=== PATIENT | female | born 1935 | race Caucasian/White ===

== ENCOUNTER 2019-01-05 12:34 | Emergency (ER) | payer MEDICARE, BC ==
[~2019-01-05] VITALS: Ht 162.6 cm; Wt 68.5 kg
--- NOTE | 2019-01-05 12:34 | NUR ---
DIANE FROM THE [facility] C/O GEN WEAKNESS STARTED 2 HRS AGO., TO ER BED 11, HOOKED TO MONITOR, CHANGED TO GOWN, PROVIDED W WARM BLANKET, AWAITING MD IVY.
--- NOTE | 2019-01-05 12:48 | NUR ---
DR GRACE AT BEDSIDE
[2019-01-05] MEDS ORDERED: IV NS 0.9% 1,000 ML BAG IV ONE (13:00)
[2019-01-05 13:10] LABS: BASOPHILS # (AUTO) 0.1 /CMM (0.0-0.2); BASOPHILS % (AUTO) 0.9 % (0.0-2.0); EOSINOPHILS % (AUTO) 0.5 % (0.0-6.0); HEMATOCRIT 49 % (33-45); HEMOGLOBIN 16.4 g/dL (11.5-14.8); LYMPHOCYTES # (AUTO) 1.4 /CMM (0.8-4.8); LYMPHOCYTES % (AUTO) 17.9 % (20.0-44.0); MEAN CORPUSCULAR HGB CONC 34 g/dl (31.0-36.0); MEAN CORPUSCULAR VOLUME 90 fL (82-100); MONOCYTES # (AUTO) 0.6 /CMM (0.1-1.30); MONOCYTES % (AUTO) 7.9 % (2.0-12.0); NEUTROPHILS # (AUTO) 5.7 /CMM (1.8-8.9); NEUTROPHILS % (AUTO) 72.8 % (43.0-81.0); PLATELET COUNT (AUTO) 273 /CMM (150-450); RED BLOOD CELL COUNT(AUTO) 5.37 MIL/uL (4.0-5.2); WHITE BLOOD COUNT (AUTO) 7.9 K/uL (4.3-11.0)
[2019-01-05 13:19] LABS: CALCIUM, SERUM 9.1 mg/dL (8.5-10.1); CARBON DIOXIDE 25 mmol/L (21-32); CHLORIDE 97 mmol/L (98-107); CREATININE 0.9 mg/dL (0.6-1.3); GLUCOSE 107 mg/dL (74-106); POTASSIUM 3.6 mmol/L (3.5-5.1); SODIUM SERUM 133 mmol/L (136-145); UREA NITROGEN, BLOOD 11 mg/dL (7-18)
[2019-01-05 13:29] LABS: ALANINE AMINOTRANSFERASE 20 U/L (12-78); ALBUMIN 3.9 g/dL (3.4-5.0); ALKALINE PHOSPHATASE 85 U/L (46-116); ASPARTATE AMINOTRANSFERASE 18 U/L (15-37); BILIRUBIN,DIRECT 0.2 mg/dL (0.0-0.2); BILIRUBIN,TOTAL 0.7 mg/dL (0.2-1.0); LIPASE 189 U/L (73-393); TOTAL PROTEIN, SERUM 7.7 g/dL (6.4-8.2)
--- NOTE | 2019-01-05 13:54 | NUR ---
RECEIVED VERBAL ORDER FROM DR GRACE TO GIVE THE PATIENT ADDITIONAL 5OOML OF NORMAL SALINE AFTER THE 1L OF NS. CARRIED OUT.
[2019-01-05 14:09] LABS: APPEARANCE,URINE Clear (CLEAR); BILIRUBIN,URINE Negative (NEGATIVE); BLOOD, URINE Negative Ery/uL (NEGATIVE); COLOR,URINE Yellow (YELLOW); KETONES,URINE 15 (NEGATIVE); LEUKOCYTE ESTERASE ,URINE Negative (NEGATIVE); NITRITE, URINE Negative (NEGATIVE); PH,URINE 7.5 (5.0-8.0); PROTEIN,URINE Negative (NEGATIVE); UGLUCOSE Negative (NEGATIVE); UROBILINOGEN,URINE 0.2 EU/dL (0.2)
--- NOTE | 2019-01-05 14:20 | NUR ---
IV 0.9% NS 500ML, IVPB RAC 20G END TIME: 1450
[2019-01-05 14:49] LABS: BACTERIA,URINE Rare /HPF (None Seen); SQUAMOUS EPITHELIAL CELL,UR Rare /HPF (None Seen)
[2019-01-05] MEDS ORDERED: ONDANSETRON HCL/PF 4 MG/2 ML VIAL ONE (15:00)
--- NOTE | 2019-01-05 15:28 | NUR ---
IV removed. Catheter intact and site benign. Pressure and 4x4 applied to site. No bleeding noted. Patient discharged to home with son in stable condition. Written and verbal after care instructions given. Patient verbalizes understanding of instruction.
[2019-01-05 15:30] VITALS: BP 142/87
[2019-01-05] MEDS ORDERED: ONDANSETRON HCL/PF - ER 4 MG/2 ML VIAL IV ONE (15:30)
[2019-01-05] MEDS ORDERED: IV NS 0.9% 500 ML BAG IV ONE (15:30)
== END 2019-01-05 15:30 | disposition home or self-care (01) ==
LOC: ER 12:36
DX: R53.1 Weakness (principal); I10 Essential (primary) hypertension; R00.0 Tachycardia, unspecified; E03.9 Hypothyroidism, unspecified; I45.10 Unspecified right bundle-branch block; Z88.4 Allergy status to anesthetic agent
CPT/HCPCS: 36415; 71045; 80048; 80076; 81001; 83690; 84484; 85025; 93005; 96374; 99284; J2405; J7030; J7040; 81000-TC

== ENCOUNTER 2022-03-19 04:45 | Inpatient (IN) | payer MEDICARE, BC ==
[~2022-03-19] VITALS: Ht 165.1 cm; Wt 62.6 kg
--- NOTE | 2022-03-19 04:50 | NUR ---
[id number] FROM [facility] C/O SLIPPING IN KITCHEN AND SPRAINED L ANKLE. PT A/OX3. TOLERATING R/A WELL WITH NO RESP DISTRESS. SAFETY MEASURES IN PLACE
--- NOTE | 2022-03-19 04:52 | NUR ---
CALLED [id number]
--- NOTE | 2022-03-19 05:35 | NUR ---
pt taken to ct
--- NOTE | 2022-03-19 05:42 | NUR ---
PTY RETURNED TO ER BED [address]
--- NOTE | 2022-03-19 05:54 | NUR ---
PLATE CONDITIONER AT PT'S BEDSIDE
--- NOTE | 2022-03-19 05:54 | NUR ---
IV ESTBLISHED RAC #20G; AWAITING LAB TO DROP OF SUPPLIES FOR COVID SAMPLE
--- NOTE | 2022-03-19 06:09 | NUR ---
CALLED LAB FOR COVID SWABS
--- NOTE | 2022-03-19 06:12 | NUR ---
PT ATTEMPTED BEDPAN AND STATED "I CANT PEE LIKE THIS" OFFERED PT IN AND OUT CATHETER AND PT REFUSES. STATES "I DONT HAVE A URINE INFECTION I DONT NEED TO GIVE URINE". EDUCATED PATIENT ON IMPORTANCE OF URINE TEST AND PT CONTINUES TO REFUSE. MADE AWARE.
[2022-03-19 07:08] LABS: CALCIUM, SERUM 9.1 mg/dL (8.5-10.1); POTASSIUM 3.6 mmol/L (3.5-5.1)
[2022-03-19 07:16] LABS: ALBUMIN 3.5 g/dL (3.4-5.0); BILIRUBIN,DIRECT 0.2 mg/dL (0.0-0.2); BILIRUBIN,TOTAL 0.4 mg/dL (0.2-1.0); TOTAL PROTEIN, SERUM 7.4 g/dL (6.4-8.2)
--- NOTE | 2022-03-19 07:20 | NUR ---
RECEIVED PT FROM [facility] RN PT AWAKE AND ALERT RESOIRATION SPONT AND EASY
--- NOTE | 2022-03-19 07:35 | NUR ---
GOT BED 312-2
[2022-03-19 07:39] LABS: BASOPHILS % (AUTO) 0.3 % (0.0-2.0); EOSINOPHILS % (AUTO) 0.3 % (0.0-6.0); HEMATOCRIT 44 % (33-45); HEMOGLOBIN 14.9 g/dL (11.5-14.8); LYMPHOCYTES # (AUTO) 1.1 K/uL (0.8-4.8); LYMPHOCYTES % (AUTO) 12.8 % (20.0-44.0); MEAN CORPUSCULAR HGB CONC 34 g/dl (31.0-36.0); MEAN CORPUSCULAR VOLUME 90 fL (82-100); MONOCYTES # (AUTO) 0.9 K/uL (0.1-1.30); MONOCYTES % (AUTO) 10.2 % (2.0-12.0); NEUTROPHILS # (AUTO) 6.6 K/uL (1.8-8.9); NEUTROPHILS % (AUTO) 76.4 % (43.0-81.0); PLATELET COUNT (AUTO) 367 K/uL (150-450); RED BLOOD CELL COUNT(AUTO) 4.89 MIL/uL (4.0-5.2); WHITE BLOOD COUNT (AUTO) 8.6 K/uL (4.3-11.0)
--- NOTE | 2022-03-19 08:30 | NUR ---
COVID SWAB DONE AND SENT TO LAB
--- NOTE | 2022-03-19 09:32 | NUR ---
MOVE SHEET SUBMITTED.
--- NOTE | 2022-03-19 10:30 | NUR ---
VITAL SIGNS WITHIN NORMAL LIMITS.
--- NOTE | 2022-03-19 10:55 | NUR ---
UA SENT TO LAB
--- NOTE | 2022-03-19 11:21 | NUR ---
HAND OFF TO IVAN. Parker RN TO ROOM 312-2 VS STABLE
[2022-03-19 11:28] VITALS: BP 129/89
--- NOTE | 2022-03-19 11:45 | NUR ---
MS RN ADMITTING NOTES ADMITTED THI 86 YO FEMALE TO UNIT AT 1128 VIA GURNEY WITH DX OF LEFT ANKLE FRACTURE. PT IS AOX4 AND ABLE TO MAKE NEEDS KNOWN. ORIENTED TO ROOM AND STAFF. VS TAKEN, STABLE AND RECORDED. PT ON ROOM AIR TOLERATING WELL, WITH NO ACUTE RESPIRATORY DISTRESS NOTED. IV ACCESS ON R AC G#20, SALINE LOCKED. PATENT, FLUSHING WELL WITH SALINE. LUNGS CLEAR ON AUSCULTATION BILATERALLY, ABDOMEN, SOFT, NON-TENDER AND NON-DISTENDED WITH + BOWEL SOUNDS ON 4 QUADRANTS, NO SKIN ISSUES NOTED ON BILATERAL EXTREMITIES AND BUTTOCKS. PATIENT REFUSED TO OPEN BOTH ANKLE (L ANKLE WITH BOOTS). SAFETY MEASURE IMPLEMENTED: BED PLACED IN LOWEST POSITION WITH SR UP X2, TRAY TABLE AND CALL LIGHT WITHIN EASY REACH OF PT. WILL CONTINUE TO MONITOR DURING MY SHIFT.
[2022-03-19 11:48] LABS: BILIRUBIN,URINE NEGATIVE (NEGATIVE); COLOR,URINE YELLOW (YELLOW); LEUKOCYTE ESTERASE ,URINE TRACE (NEGATIVE); NITRITE, URINE NEGATIVE (NEGATIVE); PROTEIN,URINE NEGATIVE (NEGATIVE); UGLUCOSE NEGATIVE (NEGATIVE); UROBILINOGEN,URINE 0.2 EU/dL (0.2)
[2022-03-19] MEDS ORDERED: LEVO112T2 PO (12:05)
[2022-03-19 12:24] LABS: BACTERIA,URINE Few /HPF (None Seen); RBC,URINE 0-2 /HPF (0-2); SQUAMOUS EPITHELIAL CELL,UR Few /HPF (None Seen)
[2022-03-19] MEDS ORDERED: MORPHINE SULFATE INJ 2 MG/ML DISP.SYRIN IV PRN (15:00)
[2022-03-19 16:00] VITALS: BP_SYST 129; BP_SYST 135; BP_DIAS 89
--- NOTE | 2022-03-19 17:00 | NUR ---
RN NOTES CAM BOOTS IN PLACE ON LEFT ANKLE AND ADMINISTERED ICE PACKS ON BOTH ANKLE. PURE WICK ADDED
[2022-03-19] MEDS ORDERED: MAG HYDROX/AL HYDROX/SIMETH 30 ML UDC PO PRN (18:00)
[2022-03-19] MEDS ORDERED: Z GUARD REMEDY 4 OZ OINT TP PRN (18:00)
[2022-03-19] MEDS ORDERED: MAGNESIUM HYDROXIDE 30 ML UDC PO PRN (18:00)
[2022-03-19] MEDS ORDERED: ACETAMINOPHEN 325 MG TABLET PO PRN (18:00)
[2022-03-19] MEDS ORDERED: ONDANSETRON HCL/PF 4 MG/2 ML VIAL IVP PRN (18:00)
--- NOTE | 2022-03-19 19:19 | NUR ---
MS RN CLOSING NOTES PATIENT LYING IN BED, RESTING, EASILY AWAKEN, AOX2, ON ROOM AIR, NO SOB NOTED, NOT IN ANY APPARENT DISTRESS NOTED. WITH IV ACCESS ON RAC G#20 SL, PATENT, INFUSING WELL. PATIENT LEFT ANKLE FRACTURE IS PROTECTED BY CAM BOOT WITH ICE PACKING ON BOTH ANKLE. PATIENT DENIES PAIN AT THIS TIME. ALL NEEDS MET, ALL DUE MEDS GIVEN. SAFETY MEASURES IN PLACE: BED LOWEST POSITION, LOCKED, SIDE RAILS UP X2, CALL LIGHT AND TRAY TABLE WITHIN REACH. ENDORSED TO THE MEDICAL REVIEW SPECIALIST NURSE.
[2022-03-19 20:00] VITALS: BP 120/69
--- NOTE | 2022-03-19 20:15 | NUR ---
MS RN OPENING NOTE RECEIVED PT AWAKE IN BED. A/O X4 AND ABLE TO MAKE NEEDS KNOWN. PT STABLE ON ROOM AIR. NO SOB OR S/S OF RESPIRATORY DISTRESS. BREATHING EVEN AND UNLABORED. IV ACCESS RAC 20G, INTACT AND PATENT. SAFETY PRECAUTIONS IN PLACE. BED IN LOWEST LOCKED POSITION, HOB ELEVATED, SIDE RAILS UP X3, AND CALL LIGHT AND TABLE WITHIN REACH. ALL NEEDS MET AT THIS TIME.
--- NOTE | 2022-03-19 22:50 | NUR ---
RN NOTE PT REQUESTED SLEEPING PILL. INFORMED DIRECTOR EHS LIZETH WITH NEW ORDER FOR RESTORIL 15 MG PO HS PRN FOR INSOMNIA. WENT TO INFORM PATIENT BUT PATIENT IS CURRENTLY ASLEEP. WILL INFORM PATIENT OF NEW ORDER WHEN AWAKE. ALL NEEDS MET AT THIS TIME.
[2022-03-19] MEDS ORDERED: TEMAZEPAM 15 MG CAPSULE PO PRN (23:00)
--- NOTE | 2022-03-20 06:45 | NUR ---
MS RN CLOSING NOTE PT RESTING IN BED, VERBALLY RESPONSIVE. A/O X4 AND ABLE TO MAKE NEEDS KNOWN. PT STABLE ON ROOM AIR. NO SOB OR S/S OF RESPIRATORY DISTRESS. BREATHING EVEN AND UNLABORED. IV ACCESS RAC 20G, INTACT AND PATENT. ALL DUE MEDS GIVEN ORDERED. SAFETY PRECAUTIONS IN PLACE AT ALL TIMES. BED IN LOWEST LOCKED POSITION, HOB ELEVATED, SIDE RAILS UP X3, AND CALL LIGHT AND TABLE WITHIN REACH. ALL NEEDS MET AT THIS TIME AND WILL ENDORSE TO ONCOMING NURSE FOR NGOC.
[2022-03-20 07:22] LABS: BASOPHILS % (AUTO) 0.3 % (0.0-2.0); EOSINOPHILS % (AUTO) 0.1 % (0.0-6.0); HEMATOCRIT 41 % (33-45); HEMOGLOBIN 13.9 g/dL (11.5-14.8); LYMPHOCYTES # (AUTO) 1.7 K/uL (0.8-4.8); LYMPHOCYTES % (AUTO) 19.1 % (20.0-44.0); MEAN CORPUSCULAR HGB CONC 34 g/dl (31.0-36.0); MEAN CORPUSCULAR VOLUME 90 fL (82-100); MONOCYTES # (AUTO) 1.1 K/uL (0.1-1.30); MONOCYTES % (AUTO) 12.8 % (2.0-12.0); NEUTROPHILS # (AUTO) 5.9 K/uL (1.8-8.9); NEUTROPHILS % (AUTO) 67.7 % (43.0-81.0); PLATELET COUNT (AUTO) 306 K/uL (150-450); RED BLOOD CELL COUNT(AUTO) 4.62 MIL/uL (4.0-5.2); WHITE BLOOD COUNT (AUTO) 8.8 K/uL (4.3-11.0)
[2022-03-20] MEDS: LEVOTHYROXINE SODIUM 112 MCG TABLET PO SCH (07:44)
--- NOTE | 2022-03-20 07:50 | NUR ---
MS RN OPENING NOTES; RECEIVED PT RESTING IN BED, VERBALLY RESPONSIVE. A/O X4 AND ABLE TO MAKE NEEDS KNOWN. PT STABLE ON ROOM AIR. NO SOB OR S/S OF RESPIRATORY DISTRESS. BREATHING EVEN AND UNLABORED. IV ACCESS RAC 20G, INTACT AND PATENT. PT INSISTS ON TAKING SYNTHROID BEFORE BREAKFAST, WILL MEDICATE PER ORDER. SAFETY PRECAUTIONS IN PLACE AT ALL TIMES. BED IN LOWEST LOCKED POSITION, HOB ELEVATED, SIDE RAILS UP X3, CALL LIGHT AND TABLE WITHIN REACH. WILL CONT WITH PLAN OF CARE DURING SHIFT.
[2022-03-20 08:00] VITALS: BP 133/86
[2022-03-20] MEDS ORDERED: LEVOTHYROXINE SODIUM 112 MCG TABLET PO SCH (09:00)
[2022-03-20 09:02] LABS: CALCIUM, SERUM 8.4 mg/dL (8.5-10.1); CREATININE 0.9 mg/dL (0.6-1.3); PHOSPHORUS 3.2 mg/dL (2.5-4.9); POTASSIUM 3.5 mmol/L (3.5-5.1)
[2022-03-20 11:48] LABS: THYROID STIMULATING HORMONE 1.722 uIU/mL (0.358-3.74)
--- NOTE | 2022-03-20 19:49 | NUR ---
MS RN CLOSING NOTES: PT RESTING IN BED, VERBALLY RESPONSIVE. A/O X4 AND ABLE TO MAKE NEEDS KNOWN. PT STABLE ON ROOM AIR. NO SOB OR S/S OF RESPIRATORY DISTRESS. BREATHING EVEN AND UNLABORED. IV ACCESS RAC 20G, INTACT AND PATENT. PURWICK DRAINED 900CC CLEAR YELLOW URINE DURING SHIFT. SAFETY PRECAUTIONS IN PLACE AT ALL TIMES. BED IN LOWEST LOCKED POSITION, HOB ELEVATED, SIDE RAILS UP X3, CALL LIGHT AND TABLE WITHIN REACH, ENDORSED TO PM SHIFT.
--- NOTE | 2022-03-20 20:12 | NUR ---
RN NOTE PT REQUESTED SLEEPING PILL. ADMINISTERED RESTORIL 15 MG FOR SLEEP ORDERED. PROVIDED BED BATH, CHANGED LINEN AND PURWICK. MADE COMFORTABLE IN BED. ALL NEEDS MET AT THIS TIME.
[2022-03-20 20:30] VITALS: BP 109/67
--- NOTE | 2022-03-21 06:56 | NUR ---
MS RN CLOSING NOTE PT AWAKE IN BED. A/O X4 AND ABLE TO MAKE NEEDS KNOWN. PT STABLE ON ROOM AIR. NO SOB OR S/S OF RESPIRATORY DISTRESS. BREATHING EVEN AND UNLABORED. IV ACCESS RAC 20G, INTACT AND PATENT. ALL DUE MEDS GIVEN ORDERED. SAFETY PRECAUTIONS IN PLACE AT ALL TIMES. BED IN LOWEST LOCKED POSITION, HOB ELEVATED, SIDE RAILS UP X3, AND CALL LIGHT AND TABLE WITHIN REACH. ALL NEEDS MET AT THIS TIME AND WILL ENDORSE TO ONCOMING NURSE FOR NGOC.
--- NOTE | 2022-03-21 07:23 | NUR ---
RN OPENING NOTE RECEIVED PATIENT IN BED, AWAKE, A/O X4, VERBALLY RESPONSIVE. NO SIGNS OF ACUTE DISTRESS NOTED. STABLE ON ROOM AIR. NO SOB NOTED, BREATHING EVEN AND UNLABORED. DENIES ANY PAIN AT THIS TIME. NOTED WITH IV ACCESS ON RIGHT AC #20G, INTACT AND PATENT, SALINE LOCKED. WITH PUREWICK CATHETER IN PLACE TO WALL SUCTION. SAFETY MEASURE IN PLACE. BED IN LOWEST AND LOCKED POSITION, SIDE RAILS UP X2, CALL LIGHT AND TABLE PLACED WITHIN EASY REACH. WILL CONTINUE TO MONITOR PATIENT.
[2022-03-21] MEDS: LEVOTHYROXINE SODIUM 112 MCG TABLET PO SCH (07:47)
[2022-03-21 08:00] VITALS: BP 105/66
[2022-03-21] MEDS ORDERED: HYDR-4303 PO (10:45)
[2022-03-21] MEDS ORDERED: HYDROCODONE/APAP 5/325MG TABLET PO PRN (11:00)
[2022-03-21 16:00] VITALS: BP 108/70
--- NOTE | 2022-03-21 18:36 | NUR ---
RN CLOSING NOTE PATIENT IN BED, AWAKE, A/O X4, VERBALLY RESPONSIVE. WATCHING MOVIE ON HER IPAD. NO SIGNS OF ACUTE DISTRESS NOTED. REMAINS STABLE ON ROOM AIR. NO SOB NOTED, BREATHING EVEN AND UNLABORED. IV ACCESS ON RIGHT AC #20G, INTACT AND PATENT, SALINE LOCKED. WITH PUREWICK CATHETER IN PLACE TO WALL SUCTION. DUE MEDS GIVEN, TOLERATED WELL. LEFT CAM BOOT IN PLACE. PATIENT FOR DISCHARGE TOMORROW MORNING, PATIENT MADE AWARE. SAFETY MEASURE MAINTAINED. BED IN LOWEST AND LOCKED POSITION, SIDE RAILS UP X2, CALL LIGHT AND TABLE PLACED WITHIN EASY REACH. WILL ENDORSE TO NEXT SHIFT FOR CONTINUITY OF CARE.
--- NOTE | 2022-03-21 19:30 | NUR ---
MS RN NOTES RECEIVED ON BED ON SEMI FOWLERS POSITION,A/O X4,NO SOB,SALINE LOCK RIGHT AC INTACT AND PATENT.CAM BOOT IN USED ON LEFT LEG,NON WEIGHT BEARING ORDERED.FALL RISK,BED ON LOWEST POSITION AND LOCKED,CALL LIGHT IN REACH,NEEDS ANTICIPATED.
--- NOTE | 2022-03-21 19:50 | NUR ---
MS RN NOTES PAIN MANAGEMENT C/O PAIN ON LEFT FOOT,5/10 ON PAIN SCALE,NORCO 5/325MG,1 TAB PO GIVEN ORDERED.VITAL SIGNS STABLE.
[2022-03-21 20:00] VITALS: BP_SYST 116; BP_SYST 127; BP_DIAS 58; BP_DIAS 69
--- NOTE | 2022-03-21 21:10 | NUR ---
MS RN OPENING NOTE RECEIVED PATIENT IN BED, ASLEEP BUT EASY TO AROUSE AND RESPONSIVE. ABLE TO MAKE NEEDS KNOWN. AFEBRILE AND NOT IN ANY FORM OF ACUTE DISTRESS. BREATHING EVEN AND NON LABORED. NO C/O PAIN OR DISCOMFORT AT THIS TIME. WITH IV ACCESS ON R AC 20G- SL. SAFETY MEASURES IN PLACE. KEPT BED IN LOCKED AND IN LOW POSITION TO REDUCE INJURY. SIDE RAILS UP X2. ADVISED TO USE THE CALL LIGHT WHEN IN NEED OF ASSISTANCE.
--- NOTE | 2022-03-22 06:30 | NUR ---
MS RN CLOSING NOTE PATIENT IN BED, ASLEEP BUT EASY TO AROUSE AND RESPONSIVE. ABLE TO MAKE NEEDS KNOWN. AFEBRILE AND NOT IN ANY FORM OF ACUTE DISTRESS. BREATHING EVEN AND NON LABORED. NO C/O PAIN OR DISCOMFORT THROUGHOUT THE SHIFT. WITH IV ACCESS ON R AC 20G- SL. SAFETY MEASURES IN PLACE. KEPT BED IN LOCKED AND IN LOW POSITION TO REDUCE INJURY. SIDE RAILS UP X2. ADVISED TO USE THE CALL LIGHT WHEN IN NEED OF ASSISTANCE. CONSTANT VISUAL CHECK DONE TO ENSURE SAFETY. ADVISED TO TURN AND REPOSITION EVERY 2 HOURS AND TOLERATED. ALL NURSING NEEDS ATTENDED. PATIENT FOR POSSIBLE DISCHARGE TO [facility]. ENDORSED TO INCOMING SHIFT.
[2022-03-22] MEDS: LEVOTHYROXINE SODIUM 112 MCG TABLET PO SCH (07:41)
--- NOTE | 2022-03-22 07:43 | NUR ---
MS RN OPENING NOTE RECEIVED PATIENT IN BED AWAKE, ALERT AND VERBALLY RESPONSIVE. ABLE TO MAKE NEEDS KNOWN. AFEBRILE, BREATHING EVEN AND NON LABORED. NO C/O PAIN OR DISCOMFORT AT THIS TIME. WITH IV ACCESS ON R AC 20G- SL, NOTED INTACT. SAFETY MEASURES IN PLACE. KEPT BED IN LOCKED AND IN LOW POSITION. SIDE RAILS UP X2. ADVISED TO USE THE CALL LIGHT WHEN IN NEED OF ASSISTANCE. WILL CONTINUE PLAN OF CARE.
[2022-03-22 08:31] VITALS: BP 117/68
--- NOTE | 2022-03-22 09:15 | NUR ---
RN NOTES CALLED [facility], SPOKE TO CARLOS DAVE AND GAVE REPORT, CONFIRMED UNDERSTANDING. DISCHARGE SUMMARY INSTRUCTIONS GO OVER WITH THE PATIENT, CONFIRMED UNDERSTANDING, SIGNED DISCHARGE PAPER WORKS, PERSONAL BELONGINGS SIGNED. AWAITING FOR AMBULANCE.
--- NOTE | 2022-03-22 10:12 | NUR ---
FINANCIAL SERVICES EDUCATION CONSULTANT NOTES GIVE REPORT TO 2 EMT'S, PATIENT LEFT THE HOSPITAL VIA GURNEY ACCOMPANIED BY 2 EMT'S STABLE, RELEASED ALL PERSONAL BELONGINGS AND DISCHARGE PAPER WORKS GIVE TO THE PATIENT.
== END 2022-03-22 16:25 | DRG 563 ==
LOC: ER 04:52 → MED 09:16
PROVIDERS: ADMIT Internal Medicine; ATTEND Internal Medicine
DX: S82.65XA Nondisplaced fracture of lateral malleolus of left fibula, initial encounter for closed fracture (principal); I47.1 Supraventricular tachycardia; N39.0 Urinary tract infection, site not specified; E87.1 Hypo-osmolality and hyponatremia; Z20.822 Contact with and (suspected) exposure to COVID-19; W19.XXXA Unspecified fall, initial encounter; Y92.89 Other specified places as the place of occurrence of the external cause; I10 Essential (primary) hypertension; E03.9 Hypothyroidism, unspecified; Z88.8 Allergy status to other drugs, medicaments and biological substances; Z79.890 Hormone replacement therapy; S93.401A Sprain of unspecified ligament of right ankle, initial encounter; Z86.79 Personal history of other diseases of the circulatory system; Z91.81 History of falling; Z85.820 Personal history of malignant melanoma of skin; S82.832A Other fracture of upper and lower end of left fibula, initial encounter for closed fracture
CPT/HCPCS: 36415; 70450-TC; 71045-TC; 73590-TC; 73600-TC; 80048-TC; 80076-TC; 81001; 83735-TC; 84100-TC; 84439-TC; 84443-TC; 84484-TC; 85025-TC; 87081-TC; 87086-TC; 93307-TC; 97530-TC; G0378; J2270

== ENCOUNTER 2022-07-07 10:02 | Emergency (ER) | payer MEDICARE, BC ==
[~2022-07-07] VITALS: Ht 165.1 cm; Wt 57.6 kg
[~2022-07-07 10:02] MED LIST: HYDR-4303 PO; LEVO112T2 PO
[2022-07-07 10:34] LABS: BASOPHILS % (AUTO) 0.8 % (0.0-2.0); EOSINOPHILS % (AUTO) 0.9 % (0.0-6.0); HEMATOCRIT 50 % (33-45); HEMOGLOBIN 16.6 g/dL (11.5-14.8); LYMPHOCYTES # (AUTO) 1.5 K/uL (0.8-4.8); LYMPHOCYTES % (AUTO) 26.1 % (20.0-44.0); MEAN CORPUSCULAR HGB CONC 33 g/dl (31.0-36.0); MEAN CORPUSCULAR VOLUME 91 fL (82-100); MONOCYTES # (AUTO) 0.5 K/uL (0.1-1.30); MONOCYTES % (AUTO) 9.4 % (2.0-12.0); NEUTROPHILS # (AUTO) 3.6 K/uL (1.8-8.9); NEUTROPHILS % (AUTO) 62.8 % (43.0-81.0); PLATELET COUNT (AUTO) 330 K/uL (150-450); RED BLOOD CELL COUNT(AUTO) 5.51 MIL/uL (4.0-5.2); WHITE BLOOD COUNT (AUTO) 5.8 K/uL (4.3-11.0)
[2022-07-07 10:44] LABS: CALCIUM, SERUM 10.2 mg/dL (8.5-10.1); CARBON DIOXIDE 27 mmol/L (21-32); CHLORIDE 99 mmol/L (98-107); CREATININE 0.8 mg/dL (0.6-1.3); GLUCOSE 136 mg/dL (74-106); POTASSIUM 3.7 mmol/L (3.5-5.1); SERUM AMMONIA 1 umol/L (11-32); SODIUM SERUM 138 mmol/L (136-145); UREA NITROGEN, BLOOD 12 mg/dL (7-18)
[2022-07-07 10:49] LABS: ALANINE AMINOTRANSFERASE 28 U/L (12-78); ALKALINE PHOSPHATASE 83 U/L (46-116); ASPARTATE AMINOTRANSFERASE 19 U/L (15-37); BILIRUBIN,DIRECT 0.3 mg/dL (0.0-0.2); BILIRUBIN,TOTAL 0.9 mg/dL (0.2-1.0); TOTAL PROTEIN, SERUM 7.8 g/dL (6.4-8.2)
[2022-07-07] MEDS: IV NS 0.9% 1,000 ML IV ONE (11:28)
[2022-07-07 11:48] LABS: BILIRUBIN,URINE NEGATIVE (NEGATIVE); COLOR,URINE YELLOW (YELLOW); LEUKOCYTE ESTERASE ,URINE 1+ (NEGATIVE); NITRITE, URINE NEGATIVE (NEGATIVE); PROTEIN,URINE NEGATIVE (NEGATIVE); UGLUCOSE NEGATIVE (NEGATIVE); UROBILINOGEN,URINE 0.2 EU/dL (0.2)
[2022-07-07 11:59] LABS: THYROID STIMULATING HORMONE 1.838 uIU/mL (0.358-3.74)
[2022-07-07 12:03] LABS: BACTERIA,URINE Few /HPF (None Seen); RBC,URINE 0-2 /HPF (0-2); SQUAMOUS EPITHELIAL CELL,UR Moderate /HPF (None Seen)
[2022-07-07] MEDS ORDERED: CEPH500T PO (12:12)
[2022-07-07] MEDS ORDERED: CEFTRIAXONE 1GM BAG (ER ONLY) 50 ML IV ONE (12:15)
[2022-07-07] MEDS: CEFTRIAXONE 1GM BAG (ER ONLY) 1 GM/50 ML PIGGYBACK IV ONE (12:25)
[2022-07-07 13:15] VITALS: BP 133/70
== END 2022-07-07 13:16 | disposition home or self-care (01) ==
LOC: ER 10:07
DX: R53.1 Weakness (principal); N39.0 Urinary tract infection, site not specified; I10 Essential (primary) hypertension; E03.9 Hypothyroidism, unspecified; Z90.710 Acquired absence of both cervix and uterus; Z90.89 Acquired absence of other organs; Z88.8 Allergy status to other drugs, medicaments and biological substances; Z79.899 Other long term (current) drug therapy
CPT/HCPCS: 99285; 96365; 71045; 93005; 82140; 85025; 80048; 87086; 80076; 81001; 36415; 84443; 84484 ×2; 83880; 82962; J7030; J0696